=== PATIENT | female | born 1965 | race Two or more races ===

== ENCOUNTER 2019-09-26 16:02 | Emergency (ER) | payer SELFPAY ==
[~2019-09-26] VITALS: Ht 124.5 cm; Wt 74.8 kg
[2019-09-26 17:07] VITALS: BP 142/81
== END 2019-09-26 18:23 | disposition home or self-care (01) ==
LOC: ER 16:02
DX: S80.01XA Contusion of right knee, initial encounter (principal); V43.62XA Car passenger injured in collision with other type car in traffic accident, initial encounter; Y93.89 Activity, other specified; Y92.410 Unspecified street and highway as the place of occurrence of the external cause; Y99.8 Other external cause status
CPT/HCPCS: 73562